=== PATIENT | female | born 1945 | race Caucasian/White ===

== ENCOUNTER → 2017-02-17 | Outpatient (CLI) | payer OTHER ==
[~2017-02-17] MED LIST: ATENOLOL PO; CRESTOR PO
--- NOTE | ~2017-02-17 | MY29 ---
[facility] A Service of [facility] / [facility] RADIOLOGY TEXT RESULTS PATIENT: PRAVIN FIGUEROA LOCATION: [facility] : 49 UNIT #: [id number] AGE: [address]: Anupam Liang MD SEX: F ORDER DR: [id number] [facility] [address] [place], [place] [address] [id number] O MR#: [id number] Acc #: [id number] NAME: PRAVIN FIGUEROA : 1945 SEX: F STUDY DATE/TIME: 02/17/2017 9:46 UNIT: [facility] ROOM: STUDY DESCRIPTION: MY MARCELLUS SCREENING W/ CAD BILAT Attending Physician: Anupam Liang Jr., M.D. Referring Physician: Anupam Liang Jr., M.D. Ordering Physician: Anupam Liang Jr., M.D. Primary Care Physician: Anupam Liang Jr., M.D. MEDICAL IMAGING REPORT This report is preliminary unless electronic signature is present EXAM Digital screening mammogram 02/17/2017. HISTORY A 71-year-old woman, positive family history. Prior bilateral breast biopsies. Annual screening. COMPARISON STUDIES Mammograms date to 07/25/2006 with most recent screening comparison 02/17/2016 Digital imaging of each breast was completed utilizing screening protocol. An additional exaggerated craniocaudal view of the left breast is provided. Biopsy markers are placed bilaterally. Breast parenchyma remains dense with a diffuse small nodular parenchymal pattern. Intramammary lymph node upper outer left breast location. There is no interval occurring mass. There are no suspicious microcalcifications and no architectural disturbance. IMPRESSION Stable benign mammogram. Annual screening recommended. BIRADS II Patients over the age of 40 are entered into a reminder system with target due date for the next mammogram. A result letter will also be sent to the patient. BIRADS: 2 Benign Finding Dictated by... Micheal Chen M.D. [facility] A Service of [facility] / [facility] RADIOLOGY TEXT RESULTS PATIENT: PRAVIN FIGUEROA LOCATION: [facility] : 49 UNIT #: [id number] AGE: [address]: Anupam Liang MD SEX: F ORDER DR: THIS IS AN ELECTRONICALLY VERIFIED REPORT Micheal Chen M.D. at 02/17/2017 1:47 PM Emmanuelle TD: 02/17/2017 13:12 JOB #: [id number] MEDICAL IMAGING REPORT Page 1 of 1 COPY
== END | disposition home or self-care (01) ==
LOC: CWCC 09:19
DX: Z12.31 Encounter for screening mammogram for malignant neoplasm of breast (principal); Z80.3 Family history of malignant neoplasm of breast; Z98.890 Other specified postprocedural states
CPT/HCPCS: G0202